=== PATIENT | male | born 1980 | race Caucasian/White ===

== ENCOUNTER 2019-05-09 13:47 | Outpatient (CLI) | payer BC ==
[~2019-05-09] VITALS: Ht 167.6 cm; Wt 92.0 kg
[2019-05-09 13:55] VITALS: BP 143/90
[2019-05-09] MEDS ORDERED: methylPREDNISolone 1,000 MG, VIAL MATE ADAPTER 1 EACH in D5W 250 ML IV ONE (15:00)
[2019-05-09] MEDS ORDERED: EXCETAB33 PO (15:01)
[2019-05-09] MEDS ORDERED: SOLUMEDROL IV (15:04)
[2019-05-09 16:00] VITALS: BP 142/84
== END 2019-05-09 16:00 | disposition home or self-care (01) ==
LOC: M INFU 13:47
PROVIDERS: ATTEND Physician Assistant
DX: H46.9 Unspecified optic neuritis (principal)
CPT/HCPCS: 96365; J2930

== ENCOUNTER 2019-05-10 13:46 | Outpatient (CLI) | payer BC ==
[~2019-05-10] VITALS: Ht 167.6 cm; Wt 91.4 kg
[~2019-05-10 13:46] MED LIST: EXCETAB33 PO; SOLUMEDROL IV
[2019-05-10 14:00] VITALS: BP 135/75
[2019-05-10] MEDS ORDERED: methylPREDNISolone 1,000 MG, VIAL MATE ADAPTER 1 EACH in D5W 250 ML IV ONE (15:00)
[2019-05-10 15:22] VITALS: BP 134/82
== END 2019-05-10 15:30 | disposition home or self-care (01) ==
LOC: M INFU 13:46 → EDUNIT# 14:00 → M INFU 15:30
PROVIDERS: ATTEND Physician Assistant
DX: H46.9 Unspecified optic neuritis (principal)
CPT/HCPCS: 96365; J2930

== ENCOUNTER 2019-05-11 14:12 | Outpatient (CLI) | payer BC ==
[~2019-05-11] VITALS: Ht 167.6 cm; Wt 92.0 kg
[2019-05-11 14:47] VITALS: BP 149/79
[2019-05-11] MEDS ORDERED: methylPREDNISolone 1,000 MG, VIAL MATE ADAPTER 1 EACH in D5W 250 ML IV ONE (15:00)
[2019-05-11 16:00] VITALS: BP 143/80
== END 2019-05-11 16:00 | disposition home or self-care (01) ==
LOC: M INFU 14:12 → EDUNIT# 14:30 → M INFU 16:00
PROVIDERS: ATTEND Physician Assistant
DX: H46.9 Unspecified optic neuritis (principal)
CPT/HCPCS: 96365; J2930

== ENCOUNTER 2019-05-12 13:45 | Outpatient (CLI) | payer BC ==
[~2019-05-12] VITALS: Ht 167.6 cm; Wt 92.0 kg
[2019-05-12 13:50] VITALS: BP 149/91
[2019-05-12] MEDS ORDERED: methylPREDNISolone 1000 MG VIAL (J2930) As Ordered ONE (14:12)
[2019-05-12] MEDS ORDERED: methylPREDNISolone 1,000 MG, VIAL MATE ADAPTER 1 EACH in D5W 250 ML IV ONE (14:15)
[2019-05-12 15:30] VITALS: BP 128/83
[2019-05-13] MEDS ORDERED: IBUP1TAB7 PO (14:11)
== END 2019-05-12 15:30 | disposition home or self-care (01) ==
LOC: M INFU 13:45 → EDUNIT# 14:00 → M INFU 15:30
PROVIDERS: ATTEND Physician Assistant
DX: H46.9 Unspecified optic neuritis (principal)
CPT/HCPCS: 96365; J2930

== ENCOUNTER 2019-05-13 13:49 | Outpatient (CLI) | payer BC ==
[~2019-05-13] VITALS: Ht 167.6 cm; Wt 91.4 kg
[2019-05-13 13:55] VITALS: BP 139/76
[2019-05-13] MEDS ORDERED: methylPREDNISolone 1,000 MG, VIAL MATE ADAPTER 1 EACH in D5W 250 ML IV ONE (14:00)
[2019-05-13] MEDS ORDERED: IBUP1TAB7 PO (14:11)
[2019-05-13 15:30] VITALS: BP 134/75
== END 2019-05-13 15:40 | disposition home or self-care (01) ==
LOC: M INFU 13:49 → EDUNIT# 14:00 → M INFU 15:40
PROVIDERS: ATTEND Physician Assistant
DX: H46.9 Unspecified optic neuritis (principal)
CPT/HCPCS: 96365; J2930

== ENCOUNTER → 2019-08-11 | Outpatient (REF) | payer BC ==
[~2019-08-11] MED LIST changes: +IBUP1TAB7 PO
== END ==
LOC: M SFHCLERA 09:54
PROVIDERS: ATTEND Nurse Practitioner Family
DX: R68.89 Other general symptoms and signs (principal)